=== PATIENT | male | born 1960 | race Caucasian/White ===

== ENCOUNTER 2018-01-22 22:11 | Emergency (ER) | payer OTHER ==
[2018-01-22] MEDS ORDERED: Bacitracin Oint 15 GM Tube TOP ONE (22:41)
--- NOTE | 2018-01-22 22:47 | EDM.PDOC ---
ED HPI GENERAL MEDICAL PROBLEM - General Chief Complaint: Head Injury Stated Complaint: HEAD LAC Time Seen by Provider: 01/22/18 22:42 Source of Information: Reports: Patient History Limitations: Reports: No Limitations - History of Present Illness INITIAL COMMENTS - FREE TEXT/NARRATIVE: Wooden shelf fell on head 11am today, no LOC, no headache, tetanus booster 1 yr ago. Duration: Hour(s): (12) Location: Reports: Head - Related Data Allergies Allergy/AdvReac Type Severity Reaction Status Date / Time Penicillins Allergy Cannot Verified 08/28/16 08:59 Remember Home Meds: Home Meds Multivitamin [Multiple Vitamins] 1 each PO DAILY 08/27/16 [History] Past Medical History Gastrointestinal History: Reports: Cholelithiasis - Infectious Disease History Infectious Disease History: Reports: Chicken Pox - Past Surgical History GI Surgical History: Reports: Appendectomy, Cholecystectomy, Hernia, Inguinal Social & Family History - Caffeine Use Caffeine Use: Reports: Coffee ED ROS GENERAL - Review of Systems Review Of Systems: See Below Constitutional: Reports: No Symptoms HEENT: Reports: No Symptoms Respiratory: Reports: No Symptoms Cardiovascular: Reports: No Symptoms Endocrine: Reports: No Symptoms GI/Abdominal: Reports: No Symptoms : Reports: No Symptoms Musculoskeletal: Reports: No Symptoms Skin: Reports: No Symptoms Neurological: Reports: No Symptoms Psychiatric: Reports: No Symptoms Hematologic/Lymphatic: Reports: No Symptoms Immunologic: Reports: No Symptoms ED EXAM, HEAD INJURY - Physical Exam Exam: See Below Exam Limited By: No Limitations General Appearance: Alert, WD/WN, No Apparent Distress Head: Scalp Lacerations (healing 1.5 cm superficial laceration mid parietal scalp, no infection) Nexus Criteria: No: Evidence of Intoxication, Altered Level of Consciousness, Focal Neurological Deficit, Painful Distraction Injuries Eyes: Bilateral Eye: PERRL Ears: Normal External Exam Nose: Normal Inspection Throat/Mouth: Normal Inspection Neck: Full Range of Motion Respiratory: No Respiratory Distress Skin: Other (as above) - Norris Coma Score Best Eye Response (Keshawn): (4) Open Spontaneously Best Verbal Response (Norris): (5) Oriented Best Motor Response (Keshawn): (6) Obeys Commands Keshawn Total: 15 Course - Orders/Labs/Meds Orders: Active Orders 24 hr Category Date Time Status Bacitracin [Bacitracin Oint] Med 01/22/18 22:41 Once 0.9 gm TOP ONETIME ONE Departure - Departure Time of Disposition: 22:46 Disposition: Home, Self-Care 01 Clinical Impression: Scalp laceration - Discharge Information Instructions: Wound Care, Adult Referrals: Timo Carter MD [Primary Care Provider] - Forms: ED Department Discharge - My Orders Last 24 Hours: My Active Orders 01/22/18 22:41 Bacitracin [Bacitracin Oint] 0.9 gm TOP ONETIME ONE - Assessment/Plan Last 24 Hours: My Active Orders 01/22/18 22:41 Bacitracin [Bacitracin Oint] 0.9 gm TOP ONETIME ONE
[2018-01-23 00:26] VITALS: BP 135/89
== END 2018-01-22 23:12 | disposition home or self-care (01) ==
LOC: FB.ED 22:11
DX: S01.01XA Laceration without foreign body of scalp, initial encounter (principal); W22.8XXA Striking against or struck by other objects, initial encounter; Z88.0 Allergy status to penicillin; Z79.899 Other long term (current) drug therapy
CPT/HCPCS: 99283; A9270